=== PATIENT | male | born 1955 | race Hispanic/Latino ===

== ENCOUNTER 2021-08-04 09:19 | Day surgery (SDC) | payer MEDICARE ==
[2021-07-28 11:14] LABS: BASOPHILS % (AUTO) 0.4 % (0.0-5.0); EOSINOPHILS % (AUTO) 1.8 % (0.0-8.0); HEMATOCRIT 45.9 % (42-54); MEAN CORPUSCULAR HEMOGLOBIN 29.8 pg (27.0-33.0); MEAN CORPUSCULAR HGB CONC 33.8 g/dL (32.0-36.0); MEAN CORPUSCULAR VOLUME 88.1 fL (79-99); MONOCYTES % (AUTO) 6.5 % (3.0-13.0); NEUTROPHILS % (AUTO) 70.6 % (40.0-77.0); PLATELET COUNT (AUTO) 627 K/uL (130-400); RED BLOOD CELL COUNT(AUTO) 5.21 MIL/uL (4.50-6.20); RED CELL DISTRIBUTION WIDTH 14.4 % (11.0-15.5); WHITE BLOOD COUNT (AUTO) 9.6 K/uL (4.8-10.8)
[2021-07-28 11:21] LABS: CREATININE 1.3 mg/dL (0.5-1.5)
[2021-07-28 11:25] LABS: POTASSIUM 4.5 mmol/L (3.5-5.1)
[2021-08-03 11:22] VITALS: BP 134/77
[2021-08-04] VITALS (14 sets, daily range): BP systolic 119–145; BP diastolic 65–91
[~2021-08-04] VITALS: Ht 175.3 cm; Wt 81.2 kg
[~2021-08-04 09:19] MED LIST: AEC81 PO; CEFAZOLIN SODIUM 1 GM VIAL IVP SCH; ESCI-8 PO; FENO150C4 PO; FOLIC ACID PO; HYDR12.54 PO; LEVO175C2 PO; MINO100C6 PO; MONT10TA21 PO; OLME20TA22 PO; OMEG100033 PO; SIMV40TA59 PO; VITAMIN D3 PO
[2021-08-04] MEDS ORDERED: LACTATED RINGERS 1000ML 1,000 ML IV ONE (09:43)
[2021-08-04] MEDS ORDERED: UBID200C18 PO (10:28)
[2021-08-04] MEDS ORDERED: ROCURONIUM 10MG/1ML SYR 10 MG/ML ML ONE ×2 (11:58→13:10)
[2021-08-04] MEDS ORDERED: LIDOCAINE PF 100MG/5ML (2%) SYRINGE 5ML ONE (11:58)
[2021-08-04] MEDS ORDERED: ONDANSETRON 4MG INJ ONE (11:58)
[2021-08-04] MEDS ORDERED: MIDAZOLAM HCL 1 MG/ML 2ML VIAL ONE (11:59)
[2021-08-04] MEDS ORDERED: KETAMINE 50MG/ML SYRINGE 50 MG/ML DISP.SYRIN IV ONE (12:07)
[2021-08-04] MEDS ORDERED: FENTANYL CITRATE PF 50 MCG/1 ML 5ML AMP IV ONE (12:10)
[2021-08-04] MEDS ORDERED: PROPOFOL 10 MG/ML 20ML VIAL IV ONE ×2 (12:10→13:31)
[2021-08-04] MEDS ORDERED: MAGNESIUM SULFATE 1 GM/2 ML VIAL ONE ×2 (12:11→12:32)
[2021-08-04] MEDS ORDERED: BUPIVACAINE/PF 0.5% 30ML VIAL ONE (12:17)
[2021-08-04] MEDS ORDERED: FENTANYL CITRATE PF 50 MCG/1 ML 2ML VIAL ONE (13:50)
[2021-08-04] MEDS ORDERED: SUGAMMADEX SODIUM 200 MG/2 ML VIAL IV ONE (13:50)
[2021-08-04] MEDS ORDERED: NEOSTIGMINE 5MG/5ML SYR IV ONE (13:51)
[2021-08-04] MEDS ORDERED: KETOROLAC 30MG VIAL (30MG/ML) ONE (13:56)
== END 2021-08-04 15:40 | disposition home or self-care (01) ==
LOC: DAH 09:19
PROVIDERS: ATTEND Surgery
DX: K40.20 Bilateral inguinal hernia, without obstruction or gangrene, not specified as recurrent (principal); Z20.822 Contact with and (suspected) exposure to COVID-19; I10 Essential (primary) hypertension; F41.9 Anxiety disorder, unspecified; F32.9 Major depressive disorder, single episode, unspecified; E03.9 Hypothyroidism, unspecified; E78.5 Hyperlipidemia, unspecified; Z79.82 Long term (current) use of aspirin; Z79.899 Other long term (current) drug therapy; Z79.890 Hormone replacement therapy; Z98.890 Other specified postprocedural states; Z87.891 Personal history of nicotine dependence; Z72.89 Other problems related to lifestyle
CPT/HCPCS: 36415; 49650; 71045; 80048; 85025; 87635; 93005; A4215 ×2; A4221; A4222; A4223; A4344; A4649; A4663; A6260; C1781 ×2; C9803; G0168; J0690; J1885; J2001; J2250; J2405; J2704 ×2; J3010 ×2; J3475 ×2; J3490; J7120 ×2; J2710

== ENCOUNTER → 2025-04-13 | Outpatient (CLI) | payer MEDICARE ==
[~2025-04-13] MED LIST changes: -CEFAZOLIN SODIUM 1 GM VIAL IVP SCH; -LEVO175C2 PO; +LEVO175C3 PO; +MONT-47 PO; -MONT10TA21 PO; -OLME20TA22 PO; +OLME20TA68 PO; +UBID200C18 PO
--- NOTE | 2025-04-13 09:37 | HMCIMG ---
Exam Type: CHEST 2VWS Clinical Information: LEFT LOWER LOBE PULMONARY MODULE Comparison: None Findings: The lungs are clear of infiltrates. The heart is normal in size. The bony and soft tissue structures of the chest are unremarkable. Impression: Clear lungs.
== END | disposition home or self-care (01) ==
LOC: LAB 08:38
PROVIDERS: ATTEND Nurse Practitioner Family
DX: R91.1 Solitary pulmonary nodule (principal)
CPT/HCPCS: 71046